=== PATIENT | male | born 1995 | race Caucasian/White ===

== ENCOUNTER 2023-01-08 22:13 | Emergency (ER) | payer MEDICAID ==
[~2023-01-08] VITALS: Ht 172.7 cm; Wt 81.6 kg
[2023-01-08 22:36] VITALS: BP 119/72
--- NOTE | 2023-01-08 22:43 | NUR ---
TO LOBBY FOLLOWING TRIAGE
--- NOTE | 2023-01-08 23:52 | NUR ---
PT TO BED #7
--- NOTE | 2023-01-09 00:04 | NUR ---
32YR OLD FEMALE BIB SELF C/O ABD PAIN X1WEEK. LOWER ABD RADIATING TO LLQ AREA SHARP 8/10 PAIN. BURNING WITH URINATION. PT STATES SX HAVE BEEN FOR A WEEK. PT IS A&OX4 . NKDA NO MED HX
--- NOTE | 2023-01-09 01:01 | NUR ---
DR PIMENTEL AT BEDSIDE
[2023-01-09] MEDS ORDERED: NAPR-54 PO (01:06)
[2023-01-09 01:24] VITALS: BP 119/72
--- NOTE | 2023-01-09 01:24 | NUR ---
Pt seen and evaluated by LETY
--- NOTE | 2023-01-09 01:24 | NUR ---
Patient discharged with v/s stable. Written and verbal after care instructions given and explained. New rx naproxen. Patient verbalized understanding. Ambulatory with steady gait. All questions addressed prior to discharge. Advised to follow up with PMD.
== END 2023-01-09 01:24 | disposition home or self-care (01) ==
LOC: MED 22:13
DX: S60.032A Contusion of left middle finger without damage to nail, initial encounter (principal); Z79.899 Other long term (current) drug therapy; W22.8XXA Striking against or struck by other objects, initial encounter; Y93.89 Activity, other specified; Y92.89 Other specified places as the place of occurrence of the external cause; Y99.0 Civilian activity done for income or pay
CPT/HCPCS: 73140; 99283

== ENCOUNTER 2023-01-18 17:17 | Emergency (ER) | payer MEDICAID ==
[~2023-01-18] VITALS: Ht 170.2 cm; Wt 82.6 kg
[~2023-01-18 17:17] MED LIST: NAPR-54 PO
[2023-01-18 17:26] VITALS: BP 132/99
[2023-01-18] MEDS ORDERED: NAPR-54 PO (18:17)
== END 2023-01-18 18:41 | disposition home or self-care (01) ==
LOC: MED 17:17
DX: S60.032A Contusion of left middle finger without damage to nail, initial encounter (principal); Z79.899 Other long term (current) drug therapy; X58.XXXA Exposure to other specified factors, initial encounter; Y93.89 Activity, other specified; Y92.89 Other specified places as the place of occurrence of the external cause; Y99.8 Other external cause status
CPT/HCPCS: 99282